=== PATIENT | female | born 2000 | race Caucasian/White ===

== ENCOUNTER 2023-09-29 08:36 | Emergency (ER) | payer BC, SELFPAY ==
[2023-09-29 09:04] VITALS: BP 124/83
[2023-09-29 09:44] LABS: % Basophils 0.3 % (0-2); % Eosinophils 0.2 % (0-6); % Immature Granulocytes 0.2 % (0-0.5); % Lymphocytes 16.2 % (20.5-51.1); % Monocytes 8.4 % (1.7-9.3); % Neutrophils 74.7 % (42.2-75.2); Absolute Lymphocytes 2.1 10^3/uL (1.2-3.4); Absolute Monocytes 1.1 10^3/uL (0.1-0.6); Absolute Neutrophils 9.7 10^3/uL (1.4-6.5); Hematocrit 34.3 % (37.0-47.0); Hemoglobin 12.5 g/dL (12.0-16.0); Mean Corp Hgb Conc. 36.4 g/dL (33.0-37.0); Mean Corpuscular Hgb 34.2 pg (27.0-31.0); Mean Platelet Volume 9.3 fL (7.4-10.4); Nucleated Red Blood Cells % 0 %; Platelet Count 324 10^3/uL (130-400); Red Blood Cell Count 3.65 10^6/uL (4.20-5.40); Red Cell Dist. Width 11.7 % (11.5-14.5); White Blood Cell Count 12.9 10^3/uL (4.8-10.8)
[2023-09-29 09:46] LABS: ALT (SGPT) 19 U/L (0-35); AST (SGOT) 27 U/L (14-36); Albumin 4.8 g/dl (3.5-5.0); Alkaline Phosphatase 71 U/L (38-126); Blood Urea Nitrogen 7 mg/dl (7-17); Calcium 9.7 mg/dl (8.4-10.2); Carbon Dioxide 22 mmol/L (22-30); Chloride 102 mmol/L (98-107); Glucose 100 mg/dl (70-99); Potassium 4.4 mmol/L (3.5-5.1); Sodium 133 mmol/L (135-145); Total Protein 7.9 g/dl (6.3-8.2); eGFR > 60.00
[2023-09-29 09:52] LABS: COVID-19 Antigen Negative (Negative)
[2023-09-29 10:07] LABS: Erythrocyte Sed Rate 25 mm/hour (0-20)
[2023-09-29 11:49] LABS: Monotest Negative (Negative)
[2023-09-29 12:45] VITALS: BP 108/72
--- NOTE | 2023-09-29 12:53 | ED.GENMED ---
History of Present Illness
General
Chief Complaint: Musculo-Skeletal Complaint
Source: patient
Exam Limitations: none
Time Seen by Provider: 09/29/23 10:28
Nursing documentation reviewed up to this point in time: agreed with
Travel History
Have you had any contact with someone who has COVID-19?: No
Do you have any symptoms of coronavirus? Fever > 100 degrees, chills, cough, shortness of breath, sore throat, loss of taste or smell, muscle aches, or headache?: Yes
Symptoms:: congestion
History of Present Illness
History of Present Illness:
23-year-old female with history of anxiety on Lexapro, acne and was on spironolactone for the past 6 months, this was DC'd 5 days ago. Presents with mildly painful, mildly burning lesions of her lower extremities. She states she noted pain in her
legs 10 days ago, 2 days later she noted the lesions and had generalized body aches. 5 days ago she went to urgent care and they diagnosed erythema nodosum. 3 days ago she went to [facility] for evaluation and they told her it was not erythema
nodosum but folliculitis and started her on Bactrim DS twice daily. 3 days ago she had 1 episode of diarrhea, none since. 4 days ago she had a mild frontal headache, she has a history of headaches and this was no different. For the past 2 days
she has had some mild sinus stuffiness.
She denies fever or chills. Denies abdominal pain, N/V. No recent travel, no known sick contacts.
Past History
Past History
ED Past Medical History: None
ED Past Surgical History: Other ([place] teeth)
Social History
Tobacco: Non-smoker
Alcohol: Occasional
Personal: Single
Living: with family
Employment: Employed
Review of Systems
Review of Systems
Allergies reviewed?: Yes
All Other Systems: ROS reviewed and negative except as documented in HPI and ROS
Constitutional: Denies fever, fatigue or chills
EENT: Denies sore throat
Cardiac: Denies chest pain
ABD/GI: Denies abdominal pain, nausea, vomiting or anorexia
: Denies dysuria, difficulty voiding or urgency
Musculoskeletal: Reports other (General body aches and pains, backs of upper arms tender)
Skin: Reports rash
Neurological: Reports no symptoms
Phy Exam
Physical Exam
Physical Exam:
GENERAL: No acute distress. A&Ox3.
CONSTITUTIONAL: Afebrile.
EYES: Clear, conjunctivae normal
Neck: Supple
ENMT: moist mucus membranes, Pharynx nl
RESPIRATORY: Regular respirations, nonlabored, lungs clear.
CARDIOVASCULAR: Regular rate and rhythm, no murmurs, no rubs.
GI: Soft, nontender
MUSCULOSKELETAL: Moves with ease. Well perfused. No edema.
SKIN: Warm, dry, tender red to reddish-brown slightly raised bumps on both legs, some of them are turning into bruises
PSYCH: Normal mood and affect. Well kept, interactive and appropriate
NEUROLOGIC: Awake, alert and oriented. No focal neurological deficits
Course
Orders/Labs/Results
Orders:
Orders
09/29/23 09:20
CMP [Comprehensive Metabolic Panel] Urgent
COVID-19 Antigen Urgent
Source: Nasal Swab
Complete Blood Count/With Diff Urgent
Erythrocyte Sed Rate Urgent
Lyme Progressive Urgent
Monotest Urgent
Influenza A+B Rapid Molecular Urgent
ALIX Source: Nasal Swab
Specimen Description:
Abnormal Lab Results
09/29/23
09:20
WBC 12.9 H 10^3/uL
(4.8-10.8)
RBC 3.65 L 10^6/uL
(4.20-5.40)
Hct 34.3 L %
(37.0-47.0)
MCH 34.2 H pg
(27.0-31.0)
Absolute Neuts (auto) 9.7 H 10^3/uL
(1.4-6.5)
Absolute Monos (auto) 1.1 H 10^3/uL
(0.1-0.6)
Lymphocytes % 16.2 L %
(20.5-51.1)
ESR 25 H mm/hour
(0-20)
Sodium 133 L mmol/L
(135-145)
Glucose 100 H mg/dl
(70-99)
09/29/23 09:20
09/29/23 09:20
Vital Signs
Initial and Last Documented VS:
Initial Vital Signs
Temp Pulse Resp BP Pulse Ox
99.0 F 97 16 124/83 99
09/29/23 09:04 09/29/23 09:04 09/29/23 09:04 09/29/23 09:04 09/29/23 09:04
Last Documented Vital Signs
Temp Pulse Resp BP Pulse Ox
99.0 F 84 18 108/72 97
09/29/23 09:04 09/29/23 12:45 09/29/23 12:45 09/29/23 12:45 09/29/23 12:45
MDM/Problems Addressed
Differential Diagnosis Includes:
erythema nodosum, cellulitis
MDM/Problems Addressed:
23-year-old female with history of anxiety on Lexapro, acne and was on spironolactone for the past 6 months, this was DC'd 5 days ago. Presents with mildly painful, mildly burning lesions of her lower extremities that seem to have worsened over the
past 24 hours. She states she noted pain in her legs 10 days ago, 2 days later she noted the lesions and had generalized body aches. 5 days ago she went to urgent care and they diagnosed erythema nodosum. 3 days ago she went to [facility] for
evaluation and they told her it was not erythema nodosum but folliculitis and started her on Bactrim DS twice daily. 3 days ago she had 1 episode of diarrhea, none since. 4 days ago she had a mild frontal headache, she has a history of headaches
and this was no different. For the past 2 days she has had some mild sinus stuffiness.
She denies fever or chills. Denies abdominal pain, N/V. No recent travel, no known sick contacts.
In literature review, sulfonamides can causes of Erythema Nodosum so This May Be the Reason It Got Worse in the past 24 Hours since she started Bactrim 3 days ago. Instructed to stop Bactrim
Pt Information from [employer] given.
Discussed with mom and pt, all questions answered.
She will see her senior compensation consultant if not improving in 2 weeks.
*Critical Care Note
Total Time (30-74mins, 75-104mins- exclusive of procedures): Not Applicable
ED Attending Note
-
Portions of this chart may have been created with voice recognition software.� Occasional wrong word or��sound alike� substitutions may have occurred due to the inherent limitations of voice recognition software.
Discharge Plan
Departure
Patient Disposition: Home (Routine Discharge)
Date of Disposition: 09/29/23
Time of Disposition: 13:22
Patient with high blood pressure during this ER visit?: No
Condition: Good
Discharge Problem:
Erythema nodosum
Instructions: Erythema nodosum
Referrals:
Regino Dewitt MD [Family Provider] - As needed
Activity Restrictions/Additional Instructions:
As we discussed, your symptoms should improve over the next couple to several weeks.
Ibuprofen 600 mg, with food, every 6 hours as needed for discomfort or fever.
Stop the Bactrim.
See your doctor or your senior compensation consultant if no improvement within the next 2 weeks.
Interventions
Interventions:
*ED COVID-19 Vaccine History Last Done: 09/29/23 09:04
[2023-09-30 16:30] LABS: Lyme Antibody Screen, EIA Negative (Negative)
== END 2023-09-29 13:40 | disposition home or self-care (01) ==
LOC: EMR 08:36
PROVIDERS: EMERGENCY PHYSICIAN Emergency Medicine; FAMILY PHYSICIAN Internal Medicine
DX: L52 Erythema nodosum (principal)
CPT/HCPCS: 99283; 80053; 85025; 85652; 86308; 86618; 87502; 87811